=== PATIENT | female | born 1955 | race Caucasian/White ===

== ENCOUNTER 2020-05-07 09:52 | Emergency (ER) | payer SELFPAY ==
--- NOTE | 2020-05-07 09:55 | W.ED.GENADLT ---
HPI - General Adult General: Chief complaint: General Medical Stated complaint: lost meds Time Seen by Provider: 05/07/20 09:54 History of Present Illness: HPI narrative: 64-year-old female visiting of this area she evidently lost all of her medications while in route she is from [place]. Her biggest problems are COPD and hypertensive medications. her breathing is been adequate as long as she stays indoors and does not exert herself. She denies any other symptoms not been ill recently Associated symptoms: Reports no associated symptoms; Deny chest pain, dyspnea, malaise, nausea, rash or vomiting Review of Systems Const: Denies: fever(s), chills, body aches, change in appetite, fatigue or malaise ENMT: Denies: throat pain, ear or mastoid pain, nasal discharge or nasal congestion Card: Denies: chest pain, edema, dyspnea on exertion or orthopnea Resp: Denies: dyspnea, productive cough or non-productive cough GI: Denies: abdominal pain, nausea, vomiting, hematemesis, coffee ground emesis, diarrhea, constipation, bloating, hematochezia or melena : Denies: flank pain, difficulty voiding, dysuria, urinary frequency or urinary urgency Skin/Breast: Denies: rash or pruritus PFSH ED PFSH: Social History (Updated 05/07/20 @ 10:03 by Beatrice Hernandez RN) Smoking and tobacco status: former smoker Physical Exam Const: COMMON NORMALS: no acute distress GENERAL APPEARANCE: cooperative and comfortable ORIENTATION/CONSCIOUSNESS: Yes awake, Yes oriented to person, Yes oriented to place and Yes oriented to time HENMT: COMMON NORMALS: normocephalic, atraumatic, hearing grossly normal bilaterally, external ears normal, EAC's normal, TM's normal bilaterally, Normal nasal mucous membranes and turbinates present, moist oral mucous membranes and oropharynx normal HEAD & SCALP: normocephalic and atraumatic NOSE: Normal nasal mucous membranes and turbinates present EXTERNAL EAR: Yes external ears normal EXTERNAL AUDITORY CANAL: EAC's normal TYMPANIC MEMBRANE: TM's normal bilaterally Eye: COMMON NORMALS: Equal, round and reactive pupils present, EOMs intact bilaterally, conjunctivae normal and no scleral icterus CONJUNCTIVA: Yes conjunctivae normal PUPIL: Yes Equal, round and reactive pupils present Neck/C-Spine: COMMON NORMALS: full ROM, no lymphadenopathy, supple and no JVD Lymph: LYMPHATIC: no lymphadenopathy noted and no lymphedema noted Resp: COMMON NORMALS: normal respiratory effort, No retractions, No use of accessory muscles and clear to auscultation bilaterally AUSCULTATION: clear to auscultation bilaterally Cardio: COMMON NORMALS: no JVD, regular rate, regular rhythm and No murmurs present (Cardio) RATE: regular rate RHYTHM: regular rhythm GI: COMMON NORMALS: Soft to palpation and No hepatosplenomegaly present AUSCULTATION: Yes normoactive bowel sounds PALPATION: Yes Soft to palpation, No Tenderness to palpation present (GI), No Guarding due to palpation present (GI) and Yes No hepatosplenomegaly present Extremity: COMMON NORMALS: normal to inspection, capillary refill normal, no clubbing, cyanosis or edema, no calf tenderness and no pedal edema Neuro: SENSORIUM/ORIENTATION: Yes oriented to person, Yes oriented to place and Yes oriented to time Skin: COMMON NORMALS: no rashes or lesions noted GENERAL SKIN EXAM: no rashes or lesions noted Course Vital Signs: Vital signs: Vital Signs Temperature 97.9 F 05/07/20 10:00 Pulse Rate 77 05/07/20 10:51 Respiratory Rate 18 05/07/20 10:51 Blood Pressure 126/88 05/07/20 10:51 Pulse Oximetry 98 05/07/20 10:51 MDM - General Adult MDM Narrative: Medical decision making narrative: Refilled all her medications for 14 days she states that is adequate to get her by until she gets home. Turn to the emergency room if she has any difficulty or problems. Discharge Plan Discharge Patient Disposition: Home, Self-Care Clinical Impression: COPD (chronic obstructive pulmonary disease), Hypertension Condition: Stable Prescriptions: New amlodipine 5 mg tablet 5 mg PO DAILY Qty: 14 RF: 0 ProAir HFA 90 mcg/actuation HFA aerosol inhaler 2 inh INHALATION Q6H PRN (Reason: shortness of breath or wheezing) Qty: 18 RF: 0 esomeprazole magnesium 20 mg capsule,delayed release(DR/EC) 20 mg PO DAILY Qty: 28 RF: 0 Allergy Relief (fluticasone) 50 mcg/actuation spray,suspension 1 spray INTRANASAL BID Qty: 16 RF: 0 ipratropium-albuterol 0.5 mg-3 mg(2.5 mg base)/3 mL solution for nebulization 3 ml INHALATION Q6H PRN (Reason: shortness of breath or wheezing) Qty: 90 RF: 0 lisinopril 20 mg tablet 20 mg PO DAILY Qty: 14 RF: 0 Spiriva with HandiHaler 18 mcg capsule, w/inhalation device 1 cap INHALATION DAILY Qty: 14 RF: 0 trazodone 50 mg tablet 50 mg PO .qhs Qty: 14 RF: 0 Seroquel 300 mg tablet 300 mg PO DAILY Qty: 14 RF: 0 No Action ipratropium-albuterol 0.5 mg-3 mg(2.5 mg base)/3 mL Solution For Nebulization 3 ml INHALATION QID PRN (Reason: Shortness Of Breath) RF: 0 quetiapine 300 mg tablet 300 mg PO BEDTIME RF: 0 trazodone 50 mg tablet 50 mg PO BEDTIME PRN (Reason: Sleep) RF: 0 lisinopril 20 mg tablet 20 mg PO DAILY RF: 0 amlodipine 5 mg tablet 5 mg PO DAILY RF: 0 ProAir HFA 90 mcg/actuation HFA aerosol inhaler 1 puff INHALATION Q6H PRN (Reason: Shortness Of Breath) RF: 0 fluticasone propionate 50 mcg/actuation spray,suspension 1 spray INTRANASAL DAILY RF: 0 esomeprazole magnesium 20 mg capsule,delayed release(DR/EC) 20 mg PO BID RF: 0 Spiriva with HandiHaler 18 mcg capsule, w/inhalation device 18 mcg INHALATION DAILY RF: 0 Discharge Orders: Discharge Order (Routine); Ordered 05/07/20 Ordered By: Faraz Calvin Activity Restrictions/Additional Instructions: Your medications were refilled for 2 weeks to allow you to return to your primary care doctor. Discharge Date/Time: 05/07/20 10:52 Coding Level of Care Code ED [employer] for Oleksandr Vera
[2020-05-07 09:56] VITALS: BMI 26.5
[2020-05-07 10:00] VITALS: BP 150/89; PULSE 84; RESP 18; TEMP 36.6; O2SAT 95
[2020-05-07 10:51] VITALS: BP 126/88; PULSE 77; RESP 18; O2SAT 98
== END 2020-05-07 10:52 | disposition home or self-care (01) ==
PROVIDERS: Emergency Provider Family Medicine
DX: J44.9 Chronic obstructive pulmonary disease, unspecified (principal); I10 Essential (primary) hypertension; Z87.891 Personal history of nicotine dependence
CPT/HCPCS: 12345; 99282

== ENCOUNTER 2020-09-04 08:47 | Inpatient (IN) | payer SELFPAY ==
[2020-09-04] VITALS (8 sets, daily range): BP systolic 97–125; BP diastolic 62–72; PULSE 72–90; RESP 16–19; TEMP 36.6–37.3; O2SAT 93–97; BMI 26.5
--- NOTE | 2020-09-04 08:52 | ECG_ITS ---
[facility] Test Date: 2020-09-04 Pat Name: Che Pruitt Department: Room: Gender: Female Cashier Supervisor: : 1955 Requested By: Joni Dunbar Order Number: [id number] Sylvia MD: ALCON LEVINE Measurements Intervals [place] Rate: 93 P: 78 MT: 180 QRS: 28 QRSD: 92 T: 70 QT: 368 QTc: 458 Interpretive Statements SINUS RHYTHM WITH OCCASIONAL VENTRICULAR PREMATURE COMPLEXES No previous ECG available for comparison Electronically Signed On 09-04-2020 19:35:36 PERSONAL FITNESS MANAGER by ALCON LEVINE [email or web address]
--- NOTE | 2020-09-04 08:52 | XRR_ITS ---
PROCEDURE INFORMATION: Exam: XR Chest, 1 View Exam date and time: 09/04/2020 8:53 AM Age: 65 years old Clinical indication: Other: Weak TECHNIQUE: Imaging protocol: XR of the chest Views: 1 view. COMPARISON: No relevant prior studies available. FINDINGS: Lungs: Unremarkable. No consolidation. Pleural space: Unremarkable. No pleural effusion. No pneumothorax. Heart/Mediastinum: Unremarkable. No cardiomegaly. Bones/joints: Chronic right 7th rib fracture deformity. Chronic fracture deformity of left 4th through 7th ribs. Thoracic curvature left concavity. XR/XR chest 1V portable [id number] IMPRESSION: No acute cardiopulmonary process.
[2020-09-04 09:21] LABS: Basophils # 0.1 10^3/uL (0.0-0.1); Basophils % 0.6 %; Eosinophils % 0.3 %; Hematocrit 38.4 % (37.0-47.0); Hemoglobin 13.1 g/dL (11.5-15.3); Lymphocytes # 0.8 10^3/uL (0.8-4.8); Lymphocytes % 8.8 %; Mean Corpuscular HGB Conc 34.1 g/dL (30.0-36.0); Mean Corpuscular Hemoglobin 29.1 pg (28.0-34.0); Mean Corpuscular Volume 85.3 fL (81-99); Mean Platelet Volume 9.7 fL (7.4-10.4); Monocytes % 10.4 %; Neutrophils # 7.59 10^3/uL (1.8-7.7); Neutrophils % 79.5 %; Nucleated Red Blood Cells % 0 %; Platelet Count 332 10^3/cmm (130-400); White Blood Count 9.6 10^3/uL (4.0-10.0)
--- NOTE | 2020-09-04 09:29 | ED_ITS ---
Documented by User: CINDY Tate 09/04/20 15:51 HPI - Nausea/Vomiting/Diarrhea General: Chief complaint: Nausea/Vomiting/Diarrhea Stated complaint: weak/throwing up/muscle aches Time Seen by Provider: 09/04/20 08:51 History of Present Illness: HPI Narrative: Patient is a 65-year-old female comes to the ED with diarrhea, nausea and vomiting. Patient says symptoms started about 6 days ago. She also says she has some mild intermittent abdominal pain over the past 6 days but says she has no abdominal pain or nausea currently. She has had fevers over the past couple days and says she has had couple episodes of emesis over the past week as well.. Endorses a lot of diarrhea that she describes as black and tarry. She says whenever she eats or drinks anything it goes right through her and she is diarrhea. She is also comp laining of feeling weak and having body aches. Patient did say she lives in an RV and she has chickens that live inside the RV with her. She states possibility of cross-contamination with food she eats ham the chickens in her RV. Associated nausea: Yes Associated abdominal pain: No Associated symtoms: Reports fatigue and nausea; Denies change in vision, chest pain, dysuria, headache(s) or palpitations Review of Systems Const: Reports: fever(s), body aches and fatigue; Denies: chills Eyes: Denies: change in vision or eye discomfort ENMT: Denies: throat pain, odynophagia, nasal discharge or nasal congestion Card: Denies: chest pain, palpitations, edema, swelling of feet/ankles, dyspnea on exertion or orthopnea Resp: Denies: dyspnea, productive cough or non-productive cough GI: Reports: abdominal pain, nausea, vomiting, diarrhea, change in stool meenu cter (She describes stool as black and tarry.) and melena; Denies: constipation or hematochezia : Denies: flank pain, dysuria or hematuria Musc: Denies: neck pain, back pain or extremity swelling Skin/Breast: Denies: rash or new lesions Neuro: Denies: headache(s), numbness in extremities or weakness in extremities [facility] ED PFSH: Medical History (Updated 09/07/20 @ 00:00 by ) Anxiety Bipolar disorder COPD (chronic obstructive pulmonary disease) -no acute exacerbation -not oxygen dependent at baseline Hypertension -VSS; continue to monitor vital signs -can resume oral antihypertensives Surgical History History of hysterectomy History of tympanoplasty Family History Other CAD (coronary artery disease) Hypertension Psychiatric illness Stroke Social History Smoking and tobacco status: former smoker Alcohol intake: never Substance/Drug Use: never Lives independently: Yes Household members: spouse Housing: Manufactured/Mobile home Current gender identity: Female Physical Exam Const: COMMON NORMALS: no acute distress, patient oriented x3 and alert GENERAL APPEARANCE: cooperative and comfortable HENMT: COMMON NORMALS: normocephalic HEAD & SCALP: normocephalic MOUTH: moist mucous membranes abnormal (moderate dehydration) THROAT: posterior oropharynx normal and uvula midline Eye: COMMON NORMALS: Equal, round and reactive pupils present PUPIL: Yes Equal, round and reactive pupils present Neck/C-Spine: COMMON NORMALS: supple GENERAL: Yes normal visual inspection Resp: COMMON NORMALS: normal respiratory effort, No retractions, No use of accessory muscles and clear to auscultation bilaterally AUSCULTATION: clear to auscultation bilaterally Cardio: COMMON NORMALS: regular rate, regular rhythm, S1 normal heart sound present, S2 normal heart sound present, No gallops present (Cardio), No clicks present (Cardio), No murmurs present (Cardio) and Peripheral pulses 2+ throughout RATE: regular rate RHYTHM: regular rhythm HEART SOUNDS: S1 normal heart sound present and S2 normal heart sound present PERIPHERAL PULSES: Peripheral pulses 2+ throughout GI: COMMON NORMALS: Normal to inspection, nondistended, normoactive bowel sounds present, Soft to palpation, non-tender and no masses PALPATION: Yes Soft to palpation : COMMON NORMALS: Yes no CVA tenderness BLADDER/KIDNEY EXAM: Yes no CVA tenderness Back/Pelvis: COMMON NORMALS: no CVA tenderness Extremity: COMMON NORMALS: normal to inspection and no pedal edema Neuro: COMMON NORMALS: patient oriented x3 and moves all extremities SENSORIUM/ORIENTATION: Yes alert Skin: GENERAL SKIN EXAM: dry skin Procedures Stool Hemoccult Procedural Steps Taken: stool placed in appropriate test area, developer placed on stool and control areas and controls appropriately positive and negative Hemoccult result: negative Additional Comments: Nurse took sample from stool and performed test. She showed me test card it was negative. Course Vital Signs: Vital signs: Vital Signs Temperature 98.3 F 09/06/20 11:29 Pulse Rate 85 09/06/20 11:29 Respiratory Rate 16 09/06/20 11:29 Blood Pressure 114/69 09/06/20 11:29 Pulse Oximetry 92 09/06/20 11:29 MDM - Nausea/Vomiting/Diarrhea MDM Narrative: Medical decision making narrative: Patient is a 65-year-old female comes to the ED with diarrhea and weakness. She has been having symptoms for the past 6 days. Stool Hemoccult negative. Potassium 3.0 and her creatinine was 2.1. CBC is unremarkable. EKG showed normal sinus rhythm with no ST segment elevation or depression seen. Troponins are negative. CT of abdomen showed multiple mesenteric lymph nodes. I talked with Dr. Nguyen about patient case and she will be taking over patient care and getting patient admitt ed to hospital. Lab Data: Attestation: I reviewed the patient's lab results. Labs: Lab Results 09/04/20 09/04/20 09/04/20 Range/Units 09:01 09:01 09:12 WBC 9.6 (4.0-10.0) 10^3/ uL RBC 4.50 (4.1-5.3) 10^6/u L Hgb 13.1 (11.5-15.3) g/dL Hct 38.4 (37.0-47.0) % MCV 85.3 (81-99) fL MCH 29.1 (28.0-34.0) pg MCHC 34.1 (30.0-36.0) g/dL RDW 12.0 L (12.1-15.1) % Plt Count 332 (130-400) 10^3/c mm MPV 9.7 (7.4-10.4) fL Neut % (Auto) 79.5 % Lymph % (Auto) 8.8 % Putnam % (Auto) 10.4 % Eos % (Auto) 0.3 % Baso % (Auto) 0.6 % Neut # (Auto) 7.59 (1.8-7.7) 10^3/u L Lymph # (Auto) 0.8 (0.8-4.8) 10^3/u L Putnam # (Auto) 1.0 H (0.2-0.9) 10^3/u L Eos # (Auto) 0.0 (0.0-0.8) 10^3/u L Baso # (Auto) 0.1 (0.0-0.1) 10^3/u L Nucleated RBC % (a uto) 0 % Nucleated RBCs # 0.0 /100WBC Sodium (136-145) mmol/L Potassium (3.5-5.1) mmol/L Chloride (98-107) mmol/L Carbon Dioxide (22-29) mmol/L Anion Gap (5-19) BUN (8-23) mg/dL Creatinine (0.5-0.9) mg/dL GFR Calculation (90-130) mL/min Glucose (65-115) mg/dL Calculated Osmolal ity (285-295) mOsm/k g Calcium (8.5-10.5) mg/dL Phosphorus (2.5-4.5) mg/dL Magnesium (1.7-2.3) mg/dL Iron (37-145) ug/dL TIBC mcg/dl % Saturation (20-50) % Unsat Iron Binding (112-347) ug/dL Total Bilirubin (0.15-1.2) mg/dL AST (0-32) U/L ALT (0-33) U/L Alkaline Phosphata se (35-105) IU/L Troponin T Baselin e (0-10) ng/L Troponin T 120 Min north fork (0-10) ng/L Delta Troponin T (0-10) ABS# Total Protein (6.6-8.7) g/dL Albumin (3.5-5.2) g/dL Globulin (1.3-4.6) g/dL Lipase (13-60) U/L Procalcitonin (0-0.5) ng/mL TSH (0.27-4.20) uIU/ mL Urine Color Yellow (Yellow) Urine Appearance Sl hazy (CLEAR) Urine pH 5 (5-7) Ur Specific Gravit y 1.010 (1.005-1.030) Urine Protein Neg (Negative) Urine Glucose (UA) Norm (Normal) Urine Ketones Negative (Negative) Urine Blood 2+ H (Negative) Urine Nitrate Negative (Negative) Urine Bilirubin Neg (Negative) Urine Urobilinogen Norm (Negative) mg/dL Ur Leukocyte Aleisha ase 2+ H (Negative) Urine RBC 10-15 H (0-2) /hpf Urine WBC 55-80 H (0-5) /hpf Ur Squamous Epith Cells 0-4 H (0-5) /hpf Ur Transition Epit h Cell 0-4 /hpf Amorphous Sediment Not Reportable Urine Bacteria 1+ H (NONE) /hpf Coarse Granular Ca sts 0-4 H /lpf Other Casts Epithelial /lpf Urine Mucus Trace /hpf Ur Random Sodium 18 mmol/L Ur Random Potassiu m 42 mmol/L Ur Random Chloride < 10 mmol/L Urine Creatinine 141 (28-217) mg/dL Urine Opiates Scre en Negative (Negative) ng/mL Ur Barbiturates Sc reen Negative (Negative) ng/mL Ur Phencyclidine S crn Negative (Negative) ng/mL Ur Amphetamines Sc reen Negative (Negative) ng/mL U Benzodiazepines Scrn Negative (Negative) ng/mL Urine Cocaine Scre en Negative (Negative) ng/mL U Marijuana (THC) Screen Negative (Negative) ng/mL SARS-CoV-2 Ag (Rap id) (Negative) 09/04/20 09/04/20 09/04/20 Range/Units 09:12 09:12 09:12 WBC (4.0-10.0) 10^3/ uL RBC (4.1-5.3) 10^6/u L Hgb (11.5-15.3) g/dL Hct (37.0-47.0) % MCV (81-99) fL MCH (28.0-34.0) pg MCHC (30.0-36.0) g/dL RDW (12.1-15.1) % Plt Count (130-400) 10^3/c mm MPV (7.4-10.4) fL Neut % (Auto) % Lymph % (Auto) % Putnam % (Auto) % Eos % (Auto) % Baso % (Auto) % Neut # (Auto) (1.8-7.7) 10^3/u L Lymph # (Auto) (0.8-4.8) 10^3/u L Putnam # (Auto) (0.2-0.9) 10^3/u L Eos # (Auto) (0.0-0.8) 10^3/u L Baso # (Auto) (0.0-0.1) 10^3/u L Nucleated RBC % (a uto) % Nucleated RBCs # /100WBC Sodium 132 L (136-145) mmol/L Potassium 3.0 L (3.5-5.1) mmol/L Chloride 95 L (98-107) mmol/L Carbon Dioxide 20 L (22-29) mmol/L Anion Gap 20.0 H (5-19) BUN 51 H (8-23) mg/dL Creatinine 2.1 H (0.5-0.9) mg/dL GFR Calculation 23.8 L (90-130) mL/min Glucose 126 H (65-115) mg/dL Calculated Osmolal ity 289 (285-295) mOsm/k g Calcium 8.5 (8.5-10.5) mg/dL Phosphorus (2.5-4.5) mg/dL Magnesium 2.9 H (1.7-2.3) mg/dL Iron (37-145) ug/dL TIBC mcg/dl % Saturation (20-50) % Unsat Iron Binding (112-347) ug/dL Total Bilirubin 0.2 (0.15-1.2) mg/dL AST 40 H (0-32) U/L ALT 48 H (0-33) U/L Alkaline Phosphata se 99 (35-105) IU/L Troponin T Baselin e 8 (0-10) ng/L Troponin T 120 Min north fork (0-10) ng/L Delta Troponin T (0-10) ABS# Total Protein 6.3 L (6.6-8.7) g/dL Albumin 3.9 (3.5-5.2) g/dL Globulin 2.4 (1.3-4.6) g/dL Lipase 37 (13-60) U/L Procalcitonin (0-0.5) ng/mL TSH (0.27-4.20) uIU/ mL Urine Color (Yellow) Urine Appearance (CLEAR) Urine pH (5-7) Ur Specific Gravit y (1.005-1.030) Urine Protein (Negative) Urine Glucose (UA) (Normal) Urine Ketones (Negative) Urine Blood (Negative) Urine Nitrate (Negative) Urine Bilirubin (Negative) Urine Urobilinogen (Negative) mg/dL Ur Leukocyte Aleisha ase (Negative) Urine RBC (0-2) /hpf Urine WBC (0-5) /hpf Ur Squamous Epith Cells (0-5) /hpf Ur Transition Epit h Cell /hpf Amorphous Sediment Urine Bacteria (NONE) /hpf Coarse Granular Ca sts /lpf Other Casts /lpf Urine Mucus /hpf Ur Random Sodium mmol/L Ur Random Potassiu m mmol/L Ur Random Chloride mmol/L Urine Creatinine (28-217) mg/dL Urine Opiates Scre en (Negative) ng/mL Ur Barbiturates Sc reen (Negative) ng/mL Ur Phencyclidine S crn (Negative) ng/mL Ur Amphetamines Sc reen (Negative) ng/mL U Benzodiazepines Scrn (Negative) ng/mL Urine Cocaine Scre en (Negative) ng/mL U Marijuana (THC) Screen (Negative) ng/mL SARS-CoV-2 Ag (Rap id) (Negative) 09/04/20 09/04/20 09/04/20 Range/Units 09:12 09:12 12:00 WBC (4.0-10.0) 10^3/ uL RBC (4.1-5.3) 10^6/u L Hgb (11.5-15.3) g/dL Hct (37.0-47.0) % MCV (81-99) fL MCH (28.0-34.0) pg MCHC (30.0-36.0) g/dL RDW (12.1-15.1) % Plt Count (130-400) 10^3/c mm MPV (7.4-10.4) fL Neut % (Auto) % Lymph % (Auto) % Putnam % (Auto) % Eos % (Auto) % Baso % (Auto) % Neut # (Auto) (1.8-7.7) 10^3/u L Lymph # (Auto) (0.8-4.8) 10^3/u L Putnam # (Auto) (0.2-0.9) 10^3/u L Eos # (Auto) (0.0-0.8) 10^3/u L Baso # (Auto) (0.0-0.1) 10^3/u L Nucleated RBC % (a uto) % Nucleated RBCs # /100WBC Sodium (136-145) mmol/L Potassium (3.5-5.1) mmol/L Chloride (98-107) mmol/L Carbon Dioxide (22-29) mmol/L Anion Gap (5-19) BUN (8-23) mg/dL Creatinine (0.5-0.9) mg/dL GFR Calculation (90-130) mL/min Glucose (65-115) mg/dL Calculated Osmolal ity (285-295) mOsm/k g Calcium (8.5-10.5) mg/dL Phosphorus 4.6 H (2.5-4.5) mg/dL Magnesium (1.7-2.3) mg/dL Iron 38 (37-145) ug/dL TIBC 192 mcg/dl % Saturation 19.7 L (20-50) % Unsat Iron Binding 154 (112-347) ug/dL Total Bilirubin (0.15-1.2) mg/dL AST (0-32) U/L ALT (0-33) U/L Alkaline Phosphata se (35-105) IU/L Troponin T Baselin e (0-10) ng/L Troponin T 120 Min north fork 7.19 (0-10) ng/L Delta Troponin T -0.81 L (0-10) ABS# Total Protein (6.6-8.7) g/dL Albumin (3.5-5.2) g/dL Globulin (1.3-4.6) g/dL Lipase (13-60) U/L Procalcitonin 0.31 (0-0.5) ng/mL TSH 0.75 (0.27-4.20) uIU/ mL Urine Color (Yellow) Urine Appearance (CLEAR) Urine pH (5-7) Ur Specific Gravit y (1.005-1.030) Urine Protein (Negative) Urine Glucose (UA) (Normal) Urine Ketones (Negative) Urine Blood (Negative) Urine Nitrate (Negative) Urine Bilirubin (Negative) Urine Urobilinogen (Negative) mg/dL Ur Leukocyte Aleisha ase (Negative) Urine RBC (0-2) /hpf Urine WBC (0-5) /hpf Ur Squamous Epith Cells (0-5) /hpf Ur Transition Epit h Cell /hpf Amorphous Sediment Urine Bacteria (NONE) /hpf Coarse Granular Ca sts /lpf Other Casts /lpf Urine Mucus /hpf Ur Random Sodium mmol/L Ur Random Potassiu m mmol/L Ur Random Chloride mmol/L Urine Creatinine (28-217) mg/dL Urine Opiates Scre en (Negative) ng/mL Ur Barbiturates Sc reen (Negative) ng/mL Ur Phencyclidine S crn (Negative) ng/mL Ur Amphetamines Sc reen (Negative) ng/mL U Benzodiazepines Scrn (Negative) ng/mL Urine Cocaine Scre en (Negative) ng/mL U Marijuana (THC) Screen (Negative) ng/mL SARS-CoV-2 Ag (Rap id) (Negative) 09/04/20 Range/Units 12:53 WBC (4.0-10.0) 10^3/ uL RBC (4.1-5.3) 10^6/u L Hgb (11.5-15.3) g/dL Hct (37.0-47.0) % MCV (81-99) fL MCH (28.0-34.0) pg MCHC (30.0-36.0) g/dL RDW (12.1-15.1) % Plt Count (130-400) 10^3/c mm MPV (7.4-10.4) fL Neut % (Auto) % Lymph % (Auto) % Putnam % (Auto) % Eos % (Auto) % Baso % (Auto) % Neut # (Auto) (1.8-7.7) 10^3/u L Lymph # (Auto) (0.8-4.8) 10^3/u L Putnam # (Auto) (0.2-0.9) 10^3/u L Eos # (Auto) (0.0-0.8) 10^3/u L Baso # (Auto) (0.0-0.1) 10^3/u L Nucleated RBC % (a uto) % Nucleated RBCs # /100WBC Sodium (136-145) mmol/L Potassium (3.5-5.1) mmol/L Chloride (98-107) mmol/L Carbon Dioxide (22-29) mmol/L Anion Gap (5-19) BUN (8-23) mg/dL Creatinine (0.5-0.9) mg/dL GFR Calculation (90-130) mL/min Glucose (65-115) mg/dL Calculated Osmolal ity (285-295) mOsm/k g Calcium (8.5-10.5) mg/dL Phosphorus (2.5-4.5) mg/dL Magnesium (1.7-2.3) mg/dL Iron (37-145) ug/dL TIBC mcg/dl % Saturation (20-50) % Unsat Iron Binding (112-347) ug/dL Total Bilirubin (0.15-1.2) mg/dL AST (0-32) U/L ALT (0-33) U/L Alkaline Phosphata se (35-105) IU/L Troponin T Baselin e (0-10) ng/L Troponin T 120 Min north fork (0-10) ng/L Delta Troponin T (0-10) ABS# Total Protein (6.6-8.7) g/dL Albumin (3.5-5.2) g/dL Globulin (1.3-4.6) g/dL Lipase (13-60) U/L Procalcitonin (0-0.5) ng/mL TSH (0.27-4.20) uIU/ mL Urine Color (Yellow) Urine Appearance (CLEAR) Urine pH (5-7) Ur Specific Gravit y (1.005-1.030) Urine Protein (Negative) Urine Glucose (UA) (Normal) Urine Ketones (Negative) Urine Blood (Negative) Urine Nitrate (Negative) Urine Bilirubin (Negative) Urine Urobilinogen (Negative) mg/dL Ur Leukocyte Aleisha ase (Negative) Urine RBC (0-2) /hpf Urine WBC (0-5) /hpf Ur Squamous Epith Cells (0-5) /hpf Ur Transition Epit h Cell /hpf Amorphous Sediment Urine Bacteria (NONE) /hpf Coarse Granular Ca sts /lpf Other Casts /lpf Urine Mucus /hpf Ur Random Sodium mmol/L Ur Random Potassiu m mmol/L Ur Random Chloride mmol/L Urine Creatinine (28-217) mg/dL Urine Opiates Scre en (Negative) ng/mL Ur Barbiturates Sc reen (Negative) ng/mL Ur Phencyclidine S crn (Negative) ng/mL Ur Amphetamines Sc reen (Negative) ng/mL U Benzodiazepines Scrn (Negative) ng/mL Urine Cocaine Scre en (Negative) ng/mL U Marijuana (THC) Screen (Negative) ng/mL SARS-CoV-2 Ag (Rap id) Negative (Negative) Imaging Data^: CT Abd/Pel: Attestation: I personally reviewed and interpreted this imaging study as follows: Radiologist's impression: [address] [address] [address] Scan Report Signed Patient: Che Pruitt Unit #: [id number] : 1955 Age/Sex: 65 / F ADM Date: 09/04/20 Loc: ER Room/Bed: Attending Dr: Ordering Provider/Ordering MD: Joni Dunbar Date of Service: 09/04/20 Procedure(s): CT abdomen pelvis con [id number] Accession Number(s): [id number] Report Number: [id number] PROCEDURE INFORMATION: Exam: CT Abdomen And Pelvis Without Contrast Exam date and time: 09/04/2020 9:32 AM Age: 65 years old Clinical indication: Nausea and vomiting and other: Diarrhea; Prior surgery; Surgery type: Hysto; Additional info: Diarrhea, black tarry stool, n/v TECHNIQUE: Imaging protocol: Computed tomography of the abdomen and pelvis without contrast. Radiation optimization: All CT scans at this facility use at least one of these dose optimization techniques: automated exposure control; mA and/or kV adjustment per patient size (includes targeted exams where dose is matched to clinical indication); or iterative reconstruction. COMPARISON: No relevant prior studies available. RADIATION DOSE METRICS: Total DLP (mGy-cm): 912.23 FINDINGS: Detailed evaluation of the abdominal and pelvic viscera is somewhat limited in the absence of intravenous contrast. Pleural space: No acute airspace or pleural disease. Liver: Poorly characterized 5 mm nodular hypodensity in the left hepatic lobe. Gallbladder and bile ducts: Status post cholecystectomy. Pancreas: No pancreatic mass or ductal dilatation. Spleen: No splenomegaly. Adrenal glands: Unremarkable adrenals. Kidneys and ureters: Normal renal morphology. No hydronephrosis. Stomach and bowel: Colonic dilatation. 3 cm duodenal diverticulum. Appendix: Appendix not visualized. Intraperitoneal space: No significant free fluid. Vasculature: Vascular calcification. No abdominal aortic aneurysm. Lymph nodes: Multiple mesenteric lymph nodes, including a 12 x 11 by 14 mm mesenteric lymph node in the right lower quadrant. Clinical correlation is recommended to exclude mesenteric adenitis. Urinary bladder: Bladder dilatation. Reproductive: status post hysterectomy. Bones/joints: Severe levoscoliosis. Osteopenia and degenerative change. CT/CT abdomen pelvis wo con [id number] IMPRESSION: 1. Multiple mesenteric lymph nodes. Clinical correlation is recommended to exclude mesenteric adenitis. 2. Additional findings as described above. Radiation Dose CTDIVOL = (mGy): DLP = 912.23 (mGy-cm) Dictated By: Joe Cruz MD Signed By: Joe Cruz MD Signed Date/Time: 09/04/20 112 DD/ 112 EKG Data^: EKG 1: Attestation: I personally reviewed and interpreted this EKG as follows: EKG interpretation date: 09/04/20 Interpretation: Normal sinus rhythm, 93 bpm, no ST segment elevation or depression seen. Discharge Plan Discharge Patient Disposition: Admitted As Inpatient Admit Provider: Julian Braden Condition: Stable Referrals: LENA AHUJA FNP [Referring] - 09/15/20 10:00 am Discharge Diet: Advance as tolerated and Regular Discharge Activity: Increase activity as tolerated Patient Instructions: Ciprofloxacin (By mouth), Mupirocin (On the skin), Acute Kidney Injury (DC), Urinary Tract Infection in Women (GEN) Discharge Date/Time: 09/04/20 14:58 Coding Level of Care Code ED Meter Attendant for Chg Fwd Exam Comprehensive Documented by User: Sandra Nguyen MD 09/08/20 07:22 HPI - Nausea/Vomiting/Diarrhea General: Chief complaint: Nausea/Vomiting/Diarrhea Stated complaint: weak/throwing up/muscle aches Time Seen by Provider: 09/04/20 08:51 PFSH ED PFSH: Medical History (Updated 09/07/20 @ 00:00 by ) Anxiety Bipolar disorder COPD (chronic obstructive pulmonary disease) -no acute exacerbation -not oxygen dependent at baseline Hypertension -VSS; continue to monitor vital signs -can resume oral antihypertensives Surgical History History of hysterectomy History of tympanoplasty Family History Other CAD (coronary artery disease) Hypertension Psychiatric illness Stroke Social History Smoking and tobacco status: former smoker Alcohol intake: never Substance/Drug Use: never Lives independently: Yes Household members: spouse Housing: Manufactured/Mobile home Current gender identity: Female Course ED course: I saw this patient with CINDY Tate. She presents with vomiting, diarrhea. She is weak and dehydrated appearing. Her work-up included some mesenteric adenitis on her CT. Given the history that she recently got chickens and lives with them in a small RV it is entirely reasonable to think this could be Salmonella. Either way she is still not tolerating fluids and will need to come in the hospital for treatment. Her abdomen is diffusely tender but not surgical. She is awake and alert and quite pleasant. Vital Signs: Vital signs: Vital Signs Temperature 98.3 F 09/06/20 11:29 Pulse Rate 85 09/06/20 11:29 Respiratory Rate 16 09/06/20 11:29 Blood Pressure 114/69 09/06/20 11:29 Pulse Oximetry 92 09/06/20 11:29 MDM - Nausea/Vomiting/Diarrhea Lab Data: Labs: Lab Results 09/04/20 09/04/20 09/04/20 Range/Units 09:01 09:01 09:12 WBC 9.6 (4.0-10.0) 10^3/ uL RBC 4.50 (4.1-5.3) 10^6/u L Hgb 13.1 (11.5-15.3) g/dL Hct 38.4 (37.0-47.0) % MCV 85.3 (81-99) fL MCH 29.1 (28.0-34.0) pg MCHC 34.1 (30.0-36.0) g/dL RDW 12.0 L (12.1-15.1) % Plt Count 332 (130-400) 10^3/c mm MPV 9.7 (7.4-10.4) fL Neut % (Auto) 79.5 % Lymph % (Auto) 8.8 % Putnam % (Auto) 10.4 % Eos % (Auto) 0.3 % Baso % (Auto) 0.6 % Neut # (Auto) 7.59 (1.8-7.7) 10^3/u L Lymph # (Auto) 0.8 (0.8-4.8) 10^3/u L Putnam # (Auto) 1.0 H (0.2-0.9) 10^3/u L Eos # (Auto) 0.0 (0.0-0.8) 10^3/u L Baso # (Auto) 0.1 (0.0-0.1) 10^3/u L Nucleated RBC % (a uto) 0 % Nucleated RBCs # 0.0 /100WBC Sodium (136-145) mmol/L Potassium (3.5-5.1) mmol/L Chloride (98-107) mmol/L Carbon Dioxide (22-29) mmol/L Anion Gap (5-19) BUN (8-23) mg/dL Creatinine (0.5-0.9) mg/dL GFR Calculation (90-130) mL/min Glucose (65-115) mg/dL Calculated Osmolal ity (285-295) mOsm/k g Calcium (8.5-10.5) mg/dL Phosphorus (2.5-4.5) mg/dL Magnesium (1.7-2.3) mg/dL Iron (37-145) ug/dL TIBC mcg/dl % Saturation (20-50) % Unsat Iron Binding (112-347) ug/dL Total Bilirubin (0.15-1.2) mg/dL AST (0-32) U/L ALT (0-33) U/L Alkaline Phosphata se (35-105) IU/L Troponin T Baselin e (0-10) ng/L Troponin T 120 Min north fork (0-10) ng/L Delta Troponin T (0-10) ABS# Total Protein (6.6-8.7) g/dL Albumin (3.5-5.2) g/dL Globulin (1.3-4.6) g/dL Lipase (13-60) U/L Procalcitonin (0-0.5) ng/mL TSH (0.27-4.20) uIU/ mL Urine Color Yellow (Yellow) Urine Appearance Sl hazy (CLEAR) Urine pH 5 (5-7) Ur Specific Gravit y 1.010 (1.005-1.030) Urine Protein Neg (Negative) Urine Glucose (UA) Norm (Normal) Urine Ketones Negative (Negative) Urine Blood 2+ H (Negative) Urine Nitrate Negative (Negative) Urine Bilirubin Neg (Negative) Urine Urobilinogen Norm (Negative) mg/dL Ur Leukocyte Aleisha ase 2+ H (Negative) Urine RBC 10-15 H (0-2) /hpf Urine WBC 55-80 H (0-5) /hpf Ur Squamous Epith Cells 0-4 H (0-5) /hpf Ur Transition Epit h Cell 0-4 /hpf Amorphous Sediment Not Reportable Urine Bacteria 1+ H (NONE) /hpf Coarse Granular Ca sts 0-4 H /lpf Other Casts Epithelial /lpf Urine Mucus Trace /hpf Ur Random Sodium 18 mmol/L Ur Random Potassiu m 42 mmol/L Ur Random Chloride < 10 mmol/L Urine Creatinine 141 (28-217) mg/dL Urine Opiates Scre en Negative (Negative) ng/mL Ur Barbiturates Sc reen Negative (Negative) ng/mL Ur Phencyclidine S crn Negative (Negative) ng/mL Ur Amphetamines Sc reen Negative (Negative) ng/mL U Benzodiazepines Scrn Negative (Negative) ng/mL Urine Cocaine Scre en Negative (Negative) ng/mL U Marijuana (THC) Screen Negative (Negative) ng/mL SARS-CoV-2 Ag (Rap id) (Negative) 09/04/20 09/04/20 09/04/20 Range/Units 09:12 09:12 09:12 WBC (4.0-10.0) 10^3/ uL RBC (4.1-5.3) 10^6/u L Hgb (11.5-15.3) g/dL Hct (37.0-47.0) % MCV (81-99) fL MCH (28.0-34.0) pg MCHC (30.0-36.0) g/dL RDW (12.1-15.1) % Plt Count (130-400) 10^3/c mm MPV (7.4-10.4) fL Neut % (Auto) % Lymph % (Auto) % [place] % (Auto) % Eos % (Auto) % Baso % (Auto) % Neut # (Auto) (1.8-7.7) 10^3/u L Lymph # (Auto) (0.8-4.8) 10^3/u L [place] # (Auto) (0.2-0.9) 10^3/u L Eos # (Auto) (0.0-0.8) 10^3/u L Baso # (Auto) (0.0-0.1) 10^3/u L Nucleated RBC % (a uto) % Nucleated RBCs # /100WBC Sodium 132 L (136-145) mmol/L Potassium 3.0 L (3.5-5.1) mmol/L Chloride 95 L (98-107) mmol/L Carbon Dioxide 20 L (22-29) mmol/L Anion Gap 20.0 H (5-19) BUN 51 H (8-23) mg/dL Creatinine 2.1 H (0.5-0.9) mg/dL GFR Calculation 23.8 L (90-130) mL/min Glucose 126 H (65-115) mg/dL Calculated Osmolal ity 289 (285-295) mOsm/k g Calcium 8.5 (8.5-10.5) mg/dL Phosphorus (2.5-4.5) mg/dL Magnesium 2.9 H (1.7-2.3) mg/dL Iron (37-145) ug/dL TIBC mcg/dl % Saturation (20-50) % Unsat Iron Binding (112-347) ug/dL Total Bilirubin 0.2 (0.15-1.2) mg/dL AST 40 H (0-32) U/L ALT 48 H (0-33) U/L Alkaline Phosphata se 99 (35-105) IU/L Troponin T Baselin e 8 (0-10) ng/L Troponin T 120 Min [place] (0-10) ng/L Delta Troponin T (0-10) ABS# Total Protein 6.3 L (6.6-8.7) g/dL Albumin 3.9 (3.5-5.2) g/dL Globulin 2.4 (1.3-4.6) g/dL Lipase 37 (13-60) U/L Procalcitonin (0-0.5) ng/mL TSH (0.27-4.20) uIU/ mL Urine Color (Yellow) Urine Appearance (CLEAR) Urine pH (5-7) Ur Specific Gravit y (1.005-1.030) Urine Protein (Negative) Urine Glucose (UA) (Normal) Urine Ketones (Negative) Urine Blood (Negative) Urine Nitrate (Negative) Urine Bilirubin (Negative) Urine Urobilinogen (Negative) mg/dL Ur Leukocyte Aleisha ase (Negative) Urine RBC (0-2) /hpf Urine WBC (0-5) /hpf Ur Squamous Epith Cells (0-5) /hpf Ur Transition Epit h Cell /hpf Amorphous Sediment Urine Bacteria (NONE) /hpf Coarse Granular Ca sts /lpf Other Casts /lpf Urine Mucus /hpf Ur Random Sodium mmol/L Ur Random Potassiu m mmol/L Ur Random Chloride mmol/L Urine Creatinine (28-217) mg/dL Urine Opiates Scre en (Negative) ng/mL Ur Barbiturates Sc reen (Negative) ng/mL Ur Phencyclidine S crn (Negative) ng/mL Ur Amphetamines Sc reen (Negative) ng/mL U Benzodiazepines Scrn (Negative) ng/mL Urine Cocaine Scre en (Negative) ng/mL U Marijuana (THC) Screen (Negative) ng/mL SARS-CoV-2 Ag (Rap id) (Negative) 09/04/20 09/04/20 09/04/20 Range/Units 09:12 09:12 12:00 WBC (4.0-10.0) 10^3/ uL RBC (4.1-5.3) 10^6/u L Hgb (11.5-15.3) g/dL Hct (37.0-47.0) % MCV (81-99) fL MCH (28.0-34.0) pg MCHC (30.0-36.0) g/dL RDW (12.1-15.1) % Plt Count (130-400) 10^3/c mm MPV (7.4-10.4) fL Neut % (Auto) % Lymph % (Auto) % Putnam % (Auto) % Eos % (Auto) % Baso % (Auto) % Neut # (Auto) (1.8-7.7) 10^3/u L Lymph # (Auto) (0.8-4.8) 10^3/u L Putnam # (Auto) (0.2-0.9) 10^3/u L Eos # (Auto) (0.0-0.8) 10^3/u L Baso # (Auto) (0.0-0.1) 10^3/u L Nucleated RBC % (a uto) % Nucleated RBCs # /100WBC Sodium (136-145) mmol/L Potassium (3.5-5.1) mmol/L Chloride (98-107) mmol/L Carbon Dioxide (22-29) mmol/L Anion Gap (5-19) BUN (8-23) mg/dL Creatinine (0.5-0.9) mg/dL GFR Calculation (90-130) mL/min Glucose (65-115) mg/dL Calculated Osmolal ity (285-295) mOsm/k g Calcium (8.5-10.5) mg/dL Phosphorus 4.6 H (2.5-4.5) mg/dL Magnesium (1.7-2.3) mg/dL Iron 38 (37-145) ug/dL TIBC 192 mcg/dl % Saturation 19.7 L (20-50) % Unsat Iron Binding 154 (112-347) ug/dL Total Bilirubin (0.15-1.2) mg/dL AST (0-32) U/L ALT (0-33) U/L Alkaline Phosphata se (35-105) IU/L Troponin T Baselin e (0-10) ng/L Troponin T 120 Min [place] 7.19 (0-10) ng/L Delta Troponin T -0.81 L (0-10) ABS# Total Protein (6.6-8.7) g/dL Albumin (3.5-5.2) g/dL Globulin (1.3-4.6) g/dL Lipase (13-60) U/L Procalcitonin 0.31 (0-0.5) ng/mL TSH 0.75 (0.27-4.20) uIU/ mL Urine Color (Yellow) Urine Appearance (CLEAR) Urine pH (5-7) Ur Specific Gravit y (1.005-1.030) Urine Protein (Negative) Urine Glucose (UA) (Normal) Urine Ketones (Negative) Urine Blood (Negative) Urine Nitrate (Negative) Urine Bilirubin (Negative) Urine Urobilinogen (Negative) mg/dL Ur Leukocyte Aleisha ase (Negative) Urine RBC (0-2) /hpf Urine WBC (0-5) /hpf Ur Squamous Epith Cells (0-5) /hpf Ur Transition Epit h Cell /hpf Amorphous Sediment Urine Bacteria (NONE) /hpf Coarse Granular Ca sts /lpf Other Casts /lpf Urine Mucus /hpf Ur Random Sodium mmol/L Ur Random Potassiu m mmol/L Ur Random Chloride mmol/L Urine Creatinine (28-217) mg/dL Urine Opiates Scre en (Negative) ng/mL Ur Barbiturates Sc reen (Negative) ng/mL Ur Phencyclidine S crn (Negative) ng/mL Ur Amphetamines Sc reen (Negative) ng/mL U Benzodiazepines Scrn (Negative) ng/mL Urine Cocaine Scre en (Negative) ng/mL U Marijuana (THC) Screen (Negative) ng/mL SARS-CoV-2 Ag (Rap id) (Negative) 09/04/20 Range/Units 12:53 WBC (4.0-10.0) 10^3/ uL RBC (4.1-5.3) 10^6/u L Hgb (11.5-15.3) g/dL Hct (37.0-47.0) % MCV (81-99) fL MCH (28.0-34.0) pg MCHC (30.0-36.0) g/dL RDW (12.1-15.1) % Plt Count (130-400) 10^3/c mm MPV (7.4-10.4) fL Neut % (Auto) % Lymph % (Auto) % Putnam % (Auto) % Eos % (Auto) % Baso % (Auto) % Neut # (Auto) (1.8-7.7) 10^3/u L Lymph # (Auto) (0.8-4.8) 10^3/u L Putnam # (Auto) (0.2-0.9) 10^3/u L Eos # (Auto) (0.0-0.8) 10^3/u L Baso # (Auto) (0.0-0.1) 10^3/u L Nucleated RBC % (a uto) % Nucleated RBCs # /100WBC Sodium (136-145) mmol/L Potassium (3.5-5.1) mmol/L Chloride (98-107) mmol/L Carbon Dioxide (22-29) mmol/L Anion Gap (5-19) BUN (8-23) mg/dL Creatinine (0.5-0.9) mg/dL GFR Calculation (90-130) mL/min Glucose (65-115) mg/dL Calculated Osmolal ity (285-295) mOsm/k g Calcium (8.5-10.5) mg/dL Phosphorus (2.5-4.5) mg/dL Magnesium (1.7-2.3) mg/dL Iron (37-145) ug/dL TIBC mcg/dl % Saturation (20-50) % Unsat Iron Binding (112-347) ug/dL Total Bilirubin (0.15-1.2) mg/dL AST (0-32) U/L ALT (0-33) U/L Alkaline Phosphata se (35-105) IU/L Troponin T Baselin e (0-10) ng/L Troponin T 120 Min [place] (0-10) ng/L Delta Troponin T (0-10) ABS# Total Protein (6.6-8.7) g/dL Albumin (3.5-5.2) g/dL Globulin (1.3-4.6) g/dL Lipase (13-60) U/L Procalcitonin (0-0.5) ng/mL TSH (0.27-4.20) uIU/ mL Urine Color (Yellow) Urine Appearance (CLEAR) Urine pH (5-7) Ur Specific Gravit y (1.005-1.030) Urine Protein (Negative) Urine Glucose (UA) (Normal) Urine Ketones (Negative) Urine Blood (Negative) Urine Nitrate (Negative) Urine Bilirubin (Negative) Urine Urobilinogen (Negative) mg/dL Ur Leukocyte Aleisha ase (Negative) Urine RBC (0-2) /hpf Urine WBC (0-5) /hpf Ur Squamous Epith Cells (0-5) /hpf Ur Transition Epit h Cell /hpf Amorphous Sediment Urine Bacteria (NONE) /hpf Coarse Granular Ca sts /lpf Other Casts /lpf Urine Mucus /hpf Ur Random Sodium mmol/L Ur Random Potassiu m mmol/L Ur Random Chloride mmol/L Urine Creatinine (28-217) mg/dL Urine Opiates Scre en (Negative) ng/mL Ur Barbiturates Sc reen (Negative) ng/mL Ur Phencyclidine S crn (Negative) ng/mL Ur Amphetamines Sc reen (Negative) ng/mL U Benzodiazepines Scrn (Negative) ng/mL Urine Cocaine Scre en (Negative) ng/mL U Marijuana (THC) Screen (Negative) ng/mL SARS-CoV-2 Ag (Rap id) Negative (Negative) Discharge Plan Discharge Patient Disposition: Admitted As Inpatient Admit Provider: Julian Braden Condition: Stable Referrals: LENA AHUJA FNP [Referring] - 09/15/20 10:00 am Discharge Diet: Advance as tolerated and Regular Discharge Activity: Increase activity as tolerated Patient Instructions: Ciprofloxacin (By mouth), Mupirocin (On the skin), Acute Kidney Injury (DC), Urinary Tract Infection in Women (GEN) Discharge Date/Time: 09/04/20 14:58 Coding Level of Care Code ED Meter Attendant for Oleksandr Fwd Exam Comprehensive
[2020-09-04 09:38] LABS: Alanine Aminotransferase 48 U/L (0-33); Albumin Level 3.9 g/dL (3.5-5.2); Alkaline Phosphatase 99 IU/L (35-105); Aspartate Amino Transferase 40 U/L (0-32); Blood Urea Nitrogen 51 mg/dL (8-23); Calcium 8.5 mg/dL (8.5-10.5); Carbon Dioxide 20 mmol/L (22-29); Chloride 95 mmol/L (98-107); Globulin 2.4 g/dL (1.3-4.6); Glomerular Filtration Rate 23.8 mL/min (90-130); Glucose 126 mg/dL (65-115); Lipase 37 U/L (13-60); Osmolality Calculated 289 mOsm/kg (285-295); Sodium 132 mmol/L (136-145); Total Bilirubin 0.2 mg/dL (0.15-1.2); Total Protein 6.3 g/dL (6.6-8.7)
[2020-09-04 09:40] LABS: Troponin(5th) Baseline 8 ng/L (0-10)
[2020-09-04] MEDS: sodium chloride 0.9% 1,000 ML 999 ML IV ×2 (09:41→12:15)
[2020-09-04 09:49] LABS: Blood Urine 2+ (Negative); Glucose Urine UA Norm (Normal); Ketones Urine Negative (Negative); Nitrate Urine Negative (Negative); Protein Urine Neg (Negative); Urine Appearance SL Hazy (CLEAR); Urine Color Yellow (Yellow); pH Urine 5 (5-7)
[2020-09-04 09:50] LABS: Bilirubin Urine Neg (Negative); Leukocyte Esterase Urine 2+ (Negative); Urobilinogen Urine Norm (Negative); WBC Urine 55-80 /hpf (0-5)
[2020-09-04 09:51] LABS: Bacteria Urine 1+ /hpf; Squamous Epithelial Cell Urine 0-4 /hpf (0-5); Transitional Epi Cells Urine 0-4 /hpf
[2020-09-04 09:52] LABS: Add Urine Culture? Yes; Coarse Granular Casts Urine 0-4 /lpf; Mucus Urine TRACE /hpf; Other Casts Urine EPITHELIAL /lpf
[2020-09-04] MEDS: potassium chloride ER 10 mEq Tablet 20 MEQ PO (10:18)
[2020-09-04 10:38] LABS: Magnesium 2.9 mg/dL (1.7-2.3)
--- NOTE | 2020-09-04 10:52 | ECG_ITS ---
[facility] Test Date: 2020-09-04 Pat Name: Che Pruitt Department: Room: Gender: Female Senior Security Architect: : 1955 Requested By: Joni Dunbar Order Number: [id number] Sylvia MD: ALCON LEVINE Measurements Intervals [place] Rate: 93 P: 82 NM: 196 QRS: 24 QRSD: 85 T: 52 QT: 354 QTc: 442 Interpretive Statements SINUS RHYTHM WITH OCCASIONAL VENTRICULAR PREMATURE COMPLEXES Compared to ECG 09/04/2020 09:35:26 No significant changes Electronically Signed On 09-04-2020 19:36:13 PIPE STRESS ENGINEER by ALCON LEVINE [id number]
[2020-09-04 12:24] LABS: Troponin 5 2HR 7.19 ng/L (0-10)
[2020-09-04 12:29] LABS: Troponin 5 2HR Delta -0.81 ABS# (0-10)
[2020-09-04] MEDS: levofloxacin-dextrose 5 % 500 MG/100 ML PREMIX 100 MG IV (13:05)
[2020-09-04 13:16] LABS: SARS Covid-2 Antigen Negative (Negative)
--- NOTE | 2020-09-04 14:25 | PM.HP ---
Providers/Chief Complaint Admitting Physician: Julian Braden MD Chief Complaint: weak/throwing up/muscle aches History of Present Illness Che Pruitt is a 65 year old female with past medical history of hypertension, COPD not on oxygen, anxiety/depression who presents to the ER today after having 6 days of multiple episodes of nausea, vomiting, explosive diarrhea with flatulence. She lives at the [facility]. She states she was having some abdominal pain earlier in the week but not having any them anymore. She also states the urine output has been decreased for last 48 hours and she had not peed before coming to the ER since yesterday. Denies of having any headache, dizziness, palpitation, fever, flulike symptoms, recent exposure to COVID-19. She states she drinks well water which was recently treated. Also states only thing new is that she is raising around 68 chicken. Denies having any sick contacts or knowing anybody who has similar symptoms. Denies use of any raw meat. Blood work in the ER showed a white count of 9.6, hemoglobin of 13.1, platelet count of 332, sodium of 132, potassium of 3, BUN of 51, creatinine of 2.1, AST/ALT of 40/48, UA concerning for 50-80 WBCs, rapid Covid antigen negative with CT abdomen pelvis done in the ER showing multiple mesenteric lymph nodes. Review of Systems General: Reports: 10 or more systems reviewed and unremarkable except in HPI and below Const: Denies: fever(s), chills, body aches, change in appetite, change in weight, malaise, night sweats, diaphoresis, change in sleep pattern, daytime sleepiness or snoring Eyes: Denies: change in vision, blurry vision, photophobia, eye discomfort or eye discharge ENMT: Denies: throat pain, enlarged tonsils, hoarseness, mouth pain, oral sores, dry mouth, tinnitus, nasal congestion or post nasal drip Card: Denies: chest pain, palpitations, irregular heart rhythm, edema, swelling of feet/ankles, lightheadedness, syncope, pre-syncope, dyspnea on exertion, orthopnea, leg pain with exertion or acrocyanosis Resp: Denies: dyspnea, productive cough, non-productive cough, wheezing, stridor, pain on inspiration, change in phlegm color, hemoptysis or chest congestion GI: Denies: abdominal pain, nausea, vomiting, hematemesis, coffee ground emesis, dysphagia, heartburn, diarrhea, constipation, bloating, GI cramping, change in bowel habits, pain on defecation, hematochezia or melena : Denies: flank pain, dysuria, urinary frequency, urinary urgency, urinary hesitancy, nocturia or hematuria Musc: Denies: neck pain, back pain, extremity pain, joint pain, joint swelling, joint redness, joint stiffness or limited range of motion Neuro: Denies: headache(s), numbness in extremities, weakness in extremities, sensory changes, lack of coordination, difficulty walking, frequent falls, dizziness, vertigo, confusion, Slurred speech present, difficulty communicating thoughts or seizure-like activity Psych: Denies: anxiety, depression, mood swings, panic attacks, hopelessness or irritability Endo: Denies: polyuria, polydipsia, tired all the time, cold intolerance, excessive sweating, flushing or heat intolerance Fabrizio/Lymph: Denies: easy bruising or easy bleeding All/Imm: Denies: tongue swelling, facial swelling or acute wheezing Medications/Allergies Home Medications Medication Instructions Recorded Confirmed Last Taken Type albuterol sulfate [ProAir HFA] 2 inh INHALATION Q6H PRN #18 gm 05/07/20 09/04/20 Unknown Rx amlodipine 5 mg PO DAILY #14 tab 05/07/20 09/04/20 09/04/20 Rx ipratropium-albuterol 3 ml INHALATION QID PRN 05/07/20 09/04/20 09/04/20 06:00 History lisinopril 20 mg PO DAILY 05/07/20 09/04/20 09/04/20 History tiotropium bromide [Spiriva with 1 cap INHALATION DAILY #14 inh 05/07/20 09/04/20 09/03/20 Rx HandiHaler] magnesium 250 mg tablet 250 mg PO BID 08/29/20 09/04/20 Unknown History prenat.vits,[place],fiz-tatn-oozjr 1 tab PO DAILY 08/29/20 09/04/20 09/04/20 History cholecalciferol (vitamin D3) 2,000 unit PO BID 09/04/20 09/04/20 Unknown History [Vitamin D3] esomeprazole magnesium 20 mg PO BID 09/04/20 09/04/20 09/04/20 History fluticasone propionate [Flonase 2 spray INTRANASAL DAILY 09/04/20 09/04/20 Unknown History Allergy Relief] ibuprofen 400 mg PO PRN 09/04/20 09/04/20 09/04/20 06:00 History quetiapine [Seroquel] 300 mg PO BEDTIME 09/04/20 09/04/20 09/03/20 History trazodone 50 mg PO BEDTIME 09/04/20 09/04/20 09/03/20 History Allergies Allergy/AdvReac Type Severity Reaction Status Date / Time acetaminophen [From Lortab] Allergy ADR-Itching Verified 09/04/20 12:48 hydrocodone [From Lortab] Allergy ADR-Itching Verified 09/04/20 12:48 PFSH Acute PFSH: Medical History (Updated 09/04/20 @ 15:42 by Julian Braden MD) Anxiety Bipolar disorder COPD (chronic obstructive pulmonary disease) Hypertension Surgical History (Updated 09/04/20 @ 15:42 by Julian Braden MD) History of hysterectomy History of tympanoplasty Family History (Updated 09/04/20 @ 15:42 by Julian Braden MD) Other CAD (coronary artery disease) Hypertension Psychiatric illness Stroke Social History (Updated 09/04/20 @ 15:43 by Julian Braden MD) Smoking and tobacco status: former smoker Alcohol intake: never Substance/Drug Use: never Lives independently: Yes Household members: spouse Housing: Manufactured/Mobile home Current gender identity: Female Vitals/I&O/Wt Last Vital Signs Temp 97.9 F 09/04/20 09:02 Pulse 88 09/04/20 09:02 Resp 18 09/04/20 09:02 BP 97/62 09/04/20 09:02 Pulse Ox 94 09/04/20 09:32 Weight last 48 hrs Weight 83.915 kg Physical Exam Narrative: EXAM NARRATIVE: General: No acute distress, AO x3, dehydrated HEENT: PERRLA, pupils bilaterally equal and reactive Chest: Normal vesicular breath sounds, no added sounds, equal good air entry bilaterally CVS: S1-S2 regular, no murmurs, no tachycardia, no gallops, no rubs Abdomen: Soft, generalized tenderness all over the abdomen, no organomegaly, bowel sounds present Neuro: No focal deficits, no facial deformity, AO x3, power 5/5 in all limbs Data : 09/04/20 09:12 09/04/20 09:12 Micro: Microbiology 09/04/20 09:12 Blood Culture - Preliminary Blood SPECIMEN COLLECTED A&P Assessment and plan (1) Diarrhea: Status: Acute (2) GARDENIA (acute kidney injury): Status: Acute (3) Dehydration: Status: Acute (4) Hyponatremia: Status: Acute (5) Hypokalemia: Status: Acute (6) COPD (chronic obstructive pulmonary disease): Status: Acute (7) Hypertension: Status: Acute Additional A&P Information 64-year-old female with past medical history of hypertension, COPD admitted with multiple episodes of diarrhea for last 6 days found to be extremely dehydrated and in GARDENIA with multiple electrolyte abnormalities. Diarrhea: CT results appreciated. Cannot rule out infective cause. Check stool studies. Given Levaquin in the ER. We will stop Levaquin in view of GARDENIA. Start patient on Zosyn. Normal saline at 75 cc/h. Blood cultures sent, check lactate level, urine culture, procalcitonin, drug urine drug screen. Will de-escalate antibiotics as per the culture results. GI soft diet. GARDENIA: Most likely secondary dehydration along with use of lisinopril at home. Medical reconciliation done for nephrotoxic drugs. Check urine lites, urine creatinine. IV hydration as above. Monitor BMP daily. Hypertension: Goal blood pressure less than 140/90 mmHg with mean over 65. Blood pressure soft for now so we will hold off on any antihypertensives. Continue to monitor blood pressures. COPD: Not in exacerbation. DuoNebs every 6 hours. Oxygen supplementation keeping saturation over 90%. Electrolyte abnormality: We will replace potassium with 80 mEq oral. IV fluids for sodium. Recheck BMP in 12 hours. Check iron panel, TSH, HbA1c, lipid panel. Full code. Heparin 5000 every 12 for DVT prophylaxis. GI soft diet. Attestations Medical Necessity Statement*: Patient requires admission for evaluation and treatment for multiple episodes of diarrhea leading to acute kidney injury and multiple electrolyte abnormalities. Admission for more than 2 midnights. Time Spent in Patient Care: Greater than 35 minutes (>than 50% of time spent in counselling and/or direct pt care on unit). Coding Level of Care Code Acute Merchandise Flow Team Leader for Chg Fwd Diagnoses Diarrhea R19.7 GARDENIA (acute kidney injury) N17.9 Dehydration E86.0 Hyponatremia E87.1 Hypokalemia E87.6 COPD (chronic obstructive pulmonary disease) J44.9 Hypertension I10
--- NOTE | 2020-09-04 14:52 | ECG_ITS ---
[facility] Test Date: 2020-09-04 Pat Name: Che Pruitt Department: Room: 252 Gender: Female Movie Producer: : 1955 Requested By: Joni Dunbar Order Number: [id number] Reading MD: ALCON LEVINE Measurements Intervals [place] Rate: 88 P: 74 DE: 190 QRS: -11 QRSD: 86 T: 57 QT: 312 QTc: 379 Interpretive Statements SINUS RHYTHM NONSPECIFIC T-WAVE ABNORMALITY Compared to ECG 09/04/2020 12:53:13 T-wave abnormality now present Ventricular premature complex(es) no longer present Electronically Signed On 09-04-2020 19:36:02 PROFESSIONAL WRESTLER by ALCON LEVINE [id number]
[2020-09-04 14:57] LABS: Amphetamines Screen Urine Negative (Negative); Barbiturates Screen Urine Negative (Negative); Benzodiazepines Screen Urine Negative (Negative); Cocaine Screen Urine Negative (Negative); Opiate Screen Urine Negative (Negative); PCP Screen Urine Negative (Negative); THC Screen Urine Negative (Negative)
[2020-09-04 15:08] LABS: Procalcitonin 0.31 ng/mL (0-0.5); Thyroid Stimulating Hormone 0.75 uIU/mL (0.27-4.20)
[2020-09-04 15:19] LABS: Potassium, Radom Urine 42 mmol/L; Urine Creatinine 141 mg/dL (28-217)
[2020-09-04 15:19] LABS: Iron 38 ug/dL (37-145); Percent Saturation 19.7 % (20-50); Phosphorus 4.6 mg/dL (2.5-4.5); Total Iron Binding Capacity 192 mcg/dl; Unsaturated Iron Binding 154 ug/dL (112-347)
[2020-09-04] MEDS: ipratropium-albuterol 3 mL Neb INHALATION ×2 (15:25→21:08)
[2020-09-04 15:33] LABS: Urine Random Sodium 18 mmol/L
[2020-09-04 15:34] LABS: Urine Random Chloride < 10 mmol/L
[2020-09-04] MEDS: piperacillin-tazobactam 3.375 GM in sodium chloride 0.9% (plus) 50 ML IV (15:41)
[2020-09-04] MEDS: sodium chloride 0.9% 1,000 ML 75 ML IV (15:41)
[2020-09-04] MEDS: heparin 5,000 unit/mL INJ 1 mL 5000 UNIT SUBCUT (15:42)
[2020-09-04 16:03] LABS: Lactic Sepsis W/Reflex 0.5 mmol/L (0.5-2.2)
[2020-09-04] MEDS: potassium chloride ER 10 mEq Tablet 40 MEQ PO (17:17)
[2020-09-04] MEDS: budesonide 0.5 mg/2 mL Neb INHALATION (21:08)
[2020-09-04] MEDS: quetiapine 300 mg Tablet PO (22:23)
[2020-09-04] MEDS: trazodone 50 mg Tablet PO (22:23)
[2020-09-05] VITALS (12 sets, daily range): BP systolic 101–130; BP diastolic 66–78; PULSE 77–101; RESP 14–18; TEMP 36.6–37.2; O2SAT 92–96
[2020-09-05] MEDS: piperacillin-tazobactam 3.375 GM in sodium chloride 0.9% (plus) 50 ML IV ×3 (00:55→15:49)
[2020-09-05] MEDS: ipratropium-albuterol 3 mL Neb INHALATION ×4 (02:27→21:02)
[2020-09-05 05:44] LABS: Basophils % 0.5 %; Eosinophils % 0.5 %; Hematocrit 33.1 % (37.0-47.0); Hemoglobin 10.9 g/dL (11.5-15.3); Lymphocytes % 15.3 %; Mean Corpuscular HGB Conc 32.9 g/dL (30.0-36.0); Mean Corpuscular Hemoglobin 28.3 pg (28.0-34.0); Mean Platelet Volume 9.4 fL (7.4-10.4); Monocytes # 0.9 10^3/uL (0.2-0.9); Monocytes % 14.1 %; Neutrophils # 4.43 10^3/uL (1.8-7.7); Neutrophils % 68.7 %; Nucleated Red Blood Cells % 0 %; Platelet Count 295 10^3/cmm (130-400); Red Blood Count 3.85 10^6/uL (4.1-5.3); Red Cell Distribution Width 12.4 % (12.1-15.1); White Blood Count 6.5 10^3/uL (4.0-10.0)
[2020-09-05] MEDS: heparin 5,000 unit/mL INJ 1 mL 5000 UNIT SUBCUT ×2 (05:54→15:49)
[2020-09-05] MEDS: sodium chloride 0.9% 1,000 ML 75 ML IV ×2 (05:55→19:43)
[2020-09-05 06:29] LABS: Alanine Aminotransferase 33 U/L (0-33); Alkaline Phosphatase 81 IU/L (35-105); Anion Gap 11.5 (5-19); Aspartate Amino Transferase 23 U/L (0-32); Blood Urea Nitrogen 20 mg/dL (8-23); Calcium 8.1 mg/dL (8.5-10.5); Carbon Dioxide 21 mmol/L (22-29); Chloride 105 mmol/L (98-107); Globulin 2.4 g/dL (1.3-4.6); Glomerular Filtration Rate 72.4 mL/min (90-130); Glucose 110 mg/dL (65-115); Magnesium 2.2 mg/dL (1.7-2.3); Osmolality Calculated 281 mOsm/kg (285-295); Phosphorus 2.5 mg/dL (2.5-4.5); Potassium 3.5 mmol/L (3.5-5.1); Sodium 134 mmol/L (136-145); Total Bilirubin 0.2 mg/dL (0.15-1.2); Total Protein 5.4 g/dL (6.6-8.7)
[2020-09-05] MEDS: budesonide 0.5 mg/2 mL Neb INHALATION ×2 (08:01→21:01)
[2020-09-05] MEDS: pantoprazole DR 40 mg Tablet PO (09:54)
--- NOTE | 2020-09-05 10:05 | PC.CHAP ---
Pastoral Care Encounter/Spiritual Assessment Type of Contact [] Declined pool hall inspector visit [] Patient/Family/Request visit [] Outpatient visit [] Follow-up visit [] Physician referral [] Code/Alert [x] Routine visit [] Staff referral [] Actively dying [] Patient sleeping [] Family support [] [] Out of room [] Palliative care [] [] Receiving care in room [] Pre-surgical visit [] Trauma [] Long length of stay [] ICU visit [] Other: Relational/Emotional Strength [] Patient feels connected with others/family/visitors/staff [] Distress [] Loneliness/isolation [] Abandonment Spirituality of Patient [] Person of Coreen [] Attends Congregation of their Coreen [] Believes in Prayer [] Reads Bible or Anabaptism materials [] There are Spiritual issues to be addressed Chief Hospital Administrator Interventions [x] Prayer [x] Active listening [x] Non-anxious presence [x] Spiritual/emotional support [] Crisis/trauma care [] Spiritual counseling [] Bereavement support [] Provided bereavement packet [x] Provided Bible/devotional materials [] Provided toy/stuffed animal, coloring book to patient or family member [] Provided Communion [] Anointing/[place] [] Salvation [x] Completed spiritual assessment [] Other: Impact on Illness or Injury [] Angry [] Fearful [] Anxious [] Often cries [] Exhaustion [] Unable to work [] Unable to attend baptism [] Unable to walk/stand [] Unable to read [] Unable to drive [] Unable to eat/drink [] Unable to sleep [] Unable to be with family [] Patient intubated [] Other: Summary patient resting well ... Time spent with patient 10 min
--- NOTE | 2020-09-05 12:03 | PM.PN ---
Subjective Subjective: Interval history: Hemodynamically stable, afebrile, had 370 mL urine output overnight. Remains on IVF, and Zosyn. Resting quietly in bed, reports feeling better though still quite weak, has not had any bowel movements. So far has been tolerating oral intake. Medications: Reviewed: Yes Medication Review Details: Active Medications Generic Name Dose Route Start Last Admin Trade Name Freq PRN Reason Stop Dose Admin Al Hydrox/Mg [place] x/Simethicone 15 ml 09/04/20 14:48 Maalox PO Q6H PRN INDIGESTION Albuterol/Ipratrop ium 3 ml 09/04/20 15:00 09/05/20 08:00 Duoneb INHALATION 3 ml Q6H.RESPIRATORY S CH Administration Budesonide 0.5 mg 09/04/20 20:00 09/05/20 08:01 Pulmicort INHALATION 0.5 mg BID MARY ALICE Administration Fluticasone Propio arun 2 spray 09/05/20 09:00 09/05/20 09:55 Flonase INTRANASAL Not Given DAILY MARY ALICE Heparin Sodium (Be ef Lung) 5,000 unit 09/04/20 16:00 09/05/20 05:54 Heparin SUBCUT 5,000 unit Q12H MARY ALICE Administration Piperacillin Sod/T azobactam 50 mls @ 12.5 mls /hr 09/04/20 16:00 09/05/20 09:54 Sod 3.375 gm/ So dium Chloride IV 12.5 mls/hr Q8H MARY ALICE Administration Protocol Sodium Chloride 1,000 mls @ 75 ml s/hr 09/04/20 14:48 09/05/20 05:55 Sodium Chloride 0.9% IV 75 mls/hr .[id number] MARY ALICE Administration Ondansetron HCl 4 mg 09/04/20 14:48 Zofran IVP Q8H PRN vomiting, or N/V if npo Pantoprazole Sodiu m 40 mg 09/05/20 09:00 09/05/20 09:54 Protonix PO 40 mg DAILY MARY ALICE Administration Quetiapine Fumarat e 300 mg 09/04/20 21:00 09/04/20 22:23 Seroquel PO 300 mg BEDTIME MARY ALICE Administration Trazodone HCl 50 mg 09/04/20 21:00 09/04/20 22:23 Desyrel PO 50 mg BEDTIME MARY ALICE Administration acetaminophen [From Lortab] Allergy (Verified 09/04/20 12:48) ADR-Itching hydrocodone [From Lortab] Allergy (Verified 09/04/20 12:48) ADR-Itching Vitals/I&O/Wt Last Vital Signs Temp 98 F 09/05/20 07:46 Pulse 90 09/05/20 08:01 Resp 16 09/05/20 08:01 BP 101/66 09/05/20 07:46 Pulse Ox 93 09/05/20 08:01 09/04/20 09/05/20 09/05/20 22:59 06:59 14:59 Intake Total 550 / 550 1050 / 1600 Output Total 375 / 375 Balance 550 / 550 675 / 1225 Weight last 48 hrs Weight 84.277 kg Weight 83.915 kg Physical Exam Const: COMMON NORMALS: no acute distress, patient oriented x3 and alert GENERAL APPEARANCE: cooperative and comfortable ORIENTATION/CONSCIOUSNESS: Yes awake OTHER: -appears fatigued HENMT: COMMON NORMALS: normocephalic, atraumatic, hearing grossly normal bilaterally and moist oral mucous membranes HEAD & SCALP: normocephalic and atraumatic Eye: COMMON NORMALS: Equal, round and reactive pupils present, EOMs intact bilaterally and conjunctivae normal CONJUNCTIVA: Yes conjunctivae normal PUPIL: Yes Equal, round and reactive pupils present Neck/C-Spine: COMMON NORMALS: full ROM GENERAL: Yes normal visual inspection and Yes trachea midline Resp: COMMON NORMALS: normal respiratory effort, No retractions, No use of accessory muscles and clear to auscultation bilaterally EFFORT & INSPECTION: Yes able to speak in complete sentences, Yes symmetric chest movement and No tachypneic AUSCULTATION: clear to auscultation bilaterally OTHER: -on RA Cardio: COMMON NORMALS: regular rate, regular rhythm, S1 normal heart sound present, S2 normal heart sound present and No murmurs present (Cardio) RATE: regular rate RHYTHM: regular rhythm HEART SOUNDS: S1 normal heart sound present and S2 normal heart sound present GI: COMMON NORMALS: Normal to inspection, nondistended, normoactive bowel sounds present, Soft to palpation and non-tender PALPATION: Yes Soft to palpation Extremity: COMMON NORMALS: normal to inspection, full ROM and no clubbing, cyanosis or edema; negative for no pedal edema Neuro: COMMON NORMALS: patient oriented x3, moves all extremities, no focal motor deficits, no sensory deficits noted and gait normal SENSORIUM/ORIENTATION: Yes alert Psych: COMMON NORMALS: mental status grossly normal, Normal thought process present, cooperative, normal affect and speech normal SPEECH: Yes normal speech THOUGHT PROCESS: Normal thought process present Skin: COMMON NORMALS: no rashes or lesions noted, no jaundice, no petechiae and no mottling GENERAL SKIN EXAM: no rashes or lesions noted Data : 09/05/20 05:03 09/05/20 05:03 Micro: Microbiology 09/04/20 09:12 Blood Culture - Preliminary Blood NEGATIVE TO DATE 09/04/20 09:01 Urine Culture - Preliminary Urine,Clean Catch 09/04/20 09:01 Legionella Urinary Antigen - Final Urethra A&P Assessment and plan (1) Dehydration: -secondary to GI losses -on IVF hydration Status: Acute (2) Diarrhea: -stool studies pending receipt -on empiric antibiotics -on IVF hydration -noted multiple mesenteric lymph nodes on CT -afebrile, no leukocytosis -on GI soft diet -rapid COVID-19 negative, blood cx prelim negative, Legionella negative, nasal MRSA positive (add mupirocin ointment BID x 5-10 days) -lipase, LFTs, pro-calcitonin wnl Status: Acute Qualifiers: Diarrhea type: presumed infectious Qualified Code(s): R19.7 - Diarrhea, unspecified (3) UTI (urinary tract infection): -UA strongly indicative of infection -urine cx: contaminants -on abx Status: Acute Qualifiers: Hematuria presence: without hematuria Urinary tract infection type: acute cystitis Qualified Code(s): N30.00 - Acute cystitis without hematuria (4) COPD (chronic obstructive pulmonary disease): -no acute exacerbation -not oxygen dependent at baseline Status: Chronic Qualifiers: COPD type: unspecified COPD Qualified Code(s): J44.9 - Chronic obstructive pulmonary disease, unspecified (5) Hypertension: -VSS; continue to monitor vital signs -antihypertensives on hold due to concern for hypotension given dehydration Status: Chronic Qualifiers: Hypertension type: essential hypertension Qualified Code(s): I10 - Essential (primary) hypertension (6) GARDENIA (acute kidney injury): -renal function normalized following IVF hydration -avoid nephrotoxins, renally dose meds Status: Acute (7) Hyponatremia: -improving with hydration Status: Acute (8) Hypokalemia: -resolved Status: Resolved Additional A&P Information -GI ppx with PPI -DVT ppx with heparin -Dispo: home -Code status: FULL code Attestations Medical Necessity Statement*: Patient requires hospitalization for continued hydration, antibiotics. Time Spent in Patient Care: 16 - 35 minutes (>than 50% of time spent in counselling and/or direct pt care on unit). Coding Level of Care Code Acute Residential Youth Counselor for Chg Fwd Exam Comprehensive Diagnoses Dehydration E86.0 Diarrhea R19.7 Diarrhea type: presumed infectious UTI (urinary tract infection) N30.00 Hematuria presence: without hematuria Urinary tract infection type: acute cystitis COPD (chronic obstructive pulmonary disease) J44.9 COPD type: unspecified COPD Hypertension I10 Hypertension type: essential hypertension G[place]ENIA (acute kidney injury) N17.9 Hyponatremia E87.1 Hypokalemia E87.6
--- NOTE | 2020-09-05 16:53 | PC.RESP ---
Pulmonary Rehab information packet sent to patient.
[2020-09-05] MEDS: mupirocin oint 22 gm 1 APPLIC NASAL (19:47)
[2020-09-05] MEDS: trazodone 50 mg Tablet PO (21:59)
[2020-09-05] MEDS: quetiapine 300 mg Tablet PO (21:59)
[2020-09-06 00:37] VITALS: BP 107/62; PULSE 81; RESP 17; TEMP 37.2; O2SAT 92
[2020-09-06] MEDS: piperacillin-tazobactam 3.375 GM in sodium chloride 0.9% (plus) 50 ML IV ×2 (01:57→09:27)
[2020-09-06 04:06] VITALS: BP 105/61; PULSE 78; RESP 18; TEMP 37; O2SAT 91
[2020-09-06] MEDS: heparin 5,000 unit/mL INJ 1 mL 5000 UNIT SUBCUT (05:02)
[2020-09-06 06:00] VITALS: BMI 26.6
[2020-09-06] MEDS: sodium chloride 0.9% 1,000 ML 75 ML IV (06:26)
[2020-09-06 07:27] VITALS: BP 112/73; PULSE 84; RESP 18; TEMP 36.8; O2SAT 93
[2020-09-06 08:08] VITALS: PULSE 83; RESP 16; O2SAT 94
[2020-09-06] MEDS: ipratropium-albuterol 3 mL Neb INHALATION (08:12)
[2020-09-06] MEDS: budesonide 0.5 mg/2 mL Neb INHALATION (08:12)
[2020-09-06] MEDS: pantoprazole DR 40 mg Tablet PO (09:27)
[2020-09-06] MEDS: mupirocin oint 22 gm 1 APPLIC NASAL (09:27)
--- NOTE | 2020-09-06 11:05 | P.DS_ITS ---
Discharge Providers Date of Admission: 09/04/20 13:38 Date of Discharge: September 06, 2020 Attending Provider at Admission: Julian Braden MD Attending Provider at Discharge: Yazmin Leary MD Consults: None Diagnoses at Discharge Discharge Diagnosis (1) Dehydration: Status: Resolved Permanent problem details: -resolved following IVF hydration, hydrated adequately orally (2) Diarrhea: Status: Acute Permanent problem details: -stool studies pending receipt -on empiric antibiotics -on IVF hydration -noted multiple mesenteric lymph nodes on CT -afebrile, no leukocytosis -on GI soft diet; tolerating oral intake well -rapid COVID-19 negative, blood cx prelim negative, Legionella negative, nasal MRSA positive (added mupirocin ointment BID x 5-10 days) -lipase, LFTs, pro-calcitonin wnl Qualifiers: Diarrhea type: presumed infectious Qualified Code(s): R19.7 - Diarrhea, unspecified (3) UTI (urinary tract infection): Status: Acute Permanent problem details: -UA strongly indicative of infection -urine cx: contaminants -on abx Qualifiers: Hematuria presence: without hematuria Urinary tract infection type: acute cystitis Qualified Code(s): N30.00 - Acute cystitis without hematuria (4) COPD (chronic obstructive pulmonary disease): Status: Chronic Permanent problem details: -no acute exacerbation -not oxygen dependent at baseline Qualifiers: COPD type: unspecified COPD Qualified Code(s): J44.9 - Chronic obstructive pulmonary disease, unspecified (5) Hypertension: Status: Chronic Permanent problem details: -VSS; continue to monitor vital signs -can resume oral antihypertensives Qualifiers: Hypertension type: essential hypertension Qualified Code(s): I10 - Essential (primary) hypertension (6) G[place]ENIA (acute kidney injury): Status: Acute Permanent problem details: -renal function normalized following IVF hydration -avoid nephrotoxins, renally dose meds (7) Hyponatremia: Status: Acute Permanent problem details: -improved with IVF (8) Hypokalemia: Status: Resolved Reason for Visit Reason for Visit: weak/throwing up/muscle aches Hospital Course Hospital Course: Patient was admitted to the medical surgical floor and started on IV fluid hydration secondary to concern for clinical dehydration in light of GI losses from gastroenteritis. She was covered with empiric antibiotic treatment secondary to concern for possible infectious diarrhea. She has not had any bowel movements during her hospital stay so unable to send stool sample. She was noted to have acute renal impairment secondary to dehydration which has since resolved with IV fluid hydration. She is tolerating oral intake without difficulty and able to hydrate orally adequately. Electrolytes have improved as well with hydration. She has had good urine output consistently. She is hemodynamically stable and has consistently been afebrile and on room air. Suspicion for infectious process is still high so we will continue empiric antibiotic therapy to complete her treatment course. She is encouraged to continue to hydrate appropriately. Blood cultures have been negative. Urinalysis was indicative of infection, urine culture has grown contaminants. Choice of antibiotic has been driven by need to cover for both GI and source. She is encouraged to seek medical attention immediately should her symptoms worsen or recur. Discharge Summary: -Patient to follow-up with primary care provider within 1 week. Physical Exam Const: COMMON NORMALS: no acute distress, patient oriented x3 and alert GENERAL APPEARANCE: cooperative and comfortable ORIENTATION/CONSCIOUSNESS: Yes awake OTHER: -appears fatigued HENMT: COMMON NORMALS: normocephalic, atraumatic, hearing grossly normal bilaterally and moist oral mucous membranes HEAD & SCALP: normocephalic and atraumatic Eye: COMMON NORMALS: Equal, round and reactive pupils present, EOMs intact bilaterally and conjunctivae normal CONJUNCTIVA: Yes conjunctivae normal PUPIL: Yes Equal, round and reactive pupils present Neck/C-Spine: COMMON NORMALS: full ROM GENERAL: Yes normal visual inspection and Yes trachea midline Resp: COMMON NORMALS: normal respiratory effort, No retractions, No use of accessory muscles and clear to auscultation bilaterally EFFORT & INSPECTION: Yes able to speak in complete sentences, Yes symmetric chest movement and No tachypneic AUSCULTATION: clear to auscultation bilaterally OTHER: -on RA Cardio: COMMON NORMALS: regular rate, regular rhythm, S1 normal heart sound present, S2 normal heart sound present and No murmurs present (Cardio) RATE: regular rate RHYTHM: regular rhythm HEART SOUNDS: S1 normal heart sound present and S2 normal heart sound present GI: COMMON NORMALS: Normal to inspection, nondistended, normoactive bowel sounds present, Soft to palpation and non-tender PALPATION: Yes Soft to palpation Extremity: COMMON NORMALS: normal to inspection, full ROM and no clubbing, cyanosis or edema; negative for no pedal edema Neuro: COMMON NORMALS: patient oriented x3, moves all extremities, no focal motor deficits, no sensory deficits noted and gait normal SENSORIUM/ORIENTATION: Yes alert Psych: COMMON NORMALS: mental status grossly normal, Normal thought process present, cooperative, normal affect and speech normal SPEECH: Yes normal speech THOUGHT PROCESS: Normal thought process present Skin: COMMON NORMALS: no rashes or lesions noted, no jaundice, no petechiae and no mottling GENERAL SKIN EXAM: no rashes or lesions noted Discharge Data Data Completed and Pending: Completed Studies During Hospitalization Category Date Time Status CT abdomen pelvis wo con [id number] Urge nt Cat Scan 09/04/20 09:30 Completed XR chest 1V brittany ble [id number] Stat Exams 09/04/20 08:52 Completed Pending at discharge Category Date Time Status Blood Culture Sta t Lab 09/04/20 09:12 Results Clostridioides Di fficile PCR Routin e Lab 09/04/20 14:25 Ordered Enteric Bacterial Panel by PCR Rout ine Lab 09/04/20 10:38 Uncollected Enteric Bacterial Panel by PCR Rout ine Lab 09/04/20 14:25 Ordered Enteric Parasite Panel by PCR Routi ne Lab 09/04/20 14:25 Ordered Helicobacter Pylo ri AG Stool Stat Lab 09/04/20 10:38 Uncollected Immunochemical Fe [place] OCB Routine Lab 09/04/20 14:25 Ordered Lactoferrin Routi ne Lab 09/04/20 14:25 Ordered Vitals: Last Vital Signs Temp 98.2 F 09/06/20 07:27 Pulse 83 09/06/20 08:08 Resp 16 09/06/20 08:08 BP 112/73 09/06/20 07:27 Pulse Ox 94 09/06/20 08:08 Discharge Plan Discharge Patient Disposition: Home Condition: Stable Prescriptions: New ciprofloxacin HCl 500 mg Tablet 500 mg PO BID 10 Days Qty: 20 RF: 0 mupirocin 2 % Ointment 1 applic nasal BID 7 Days Qty: 30 RF: 0 Continued prenat.vits,[place],[id number]-cxoe-aokcd Tablet 1 tab PO DAILY RF: 0 magnesium 250 mg tablet 250 mg PO BID RF: 0 ibuprofen 200 mg Tablet 400 mg PO PRN RF: 0 Flonase Allergy Relief 50 mcg/actuation [place],Suspension 2 spray INTRANASAL DAILY RF: 0 Vitamin D3 50 mcg (2,000 unit) Capsule 2,000 unit PO BID RF: 0 Seroquel 300 mg tablet 300 mg PO BEDTIME RF: 0 trazodone 50 mg tablet 50 mg PO BEDTIME RF: 0 esomeprazole magnesium 20 mg capsule,delayed release(DR/EC) 20 mg PO BID RF: 0 ipratropium-albuterol 0.5 mg-3 mg(2.5 mg base)/3 mL Solution For Nebulization 3 ml INHALATION QID PRN (Reason: Shortness Of Breath) RF: 0 lisinopril 20 mg tablet 20 mg PO DAILY RF: 0 amlodipine 5 mg tablet 5 mg PO DAILY Qty: 14 RF: 0 albuterol sulfate [ProAir HFA] 90 mcg/actuation HFA aerosol inhaler 2 inh INHALATION Q6H PRN (Reason: shortness of breath or wheezing) Qty: 18 RF: 0 Spiriva with HandiHaler 18 mcg capsule, w/inhalation device 1 cap INHALATION DAILY Qty: 14 RF: 0 Discharge Orders: Discharge Order (Routine); Ordered 09/06/20 Ordered By: Yazmin Leary Referrals: LENA AHUJA FNP [Referring] - 09/15/20 10:00 am Discharge Diet: Advance as tolerated and Regular Discharge Activity: Increase activity as tolerated Patient Instructions: Ciprofloxacin (By mouth), Mupirocin (On the skin), Acute Kidney Injury (DC), Urinary Tract Infection in Women (GEN) Discharge Attestations Time Spent in Discharge Care*: greater than 30 min Specific Discharge Activities: Specific discharge activities: educating patient, discussing with case monitor/social workers/dc planners, documenting/other paperwork and evaluating patient/reviewing data Status at Discharge: Cognitive status at discharge: cognitively intact , Behavioral status at discharge: cooperative and independent in ADL's , Functional status at discharge: independent ambulation Overall status at discharge: patient is progressing back to baseline Quality Metrics Clinical Quality Measures During this hospital stay, did patient experience: None Coding Level of Care Code Acute Director [employer] for g Fwd Exam Comprehensive Diagnoses Dehydration E86.0 Diarrhea R19.7 Diarrhea type: presumed infectious UTI (urinary tract infection) N30.00 Hematuria presence: without hematuria Urinary tract infection type: acute cystitis COPD (chronic obstructive pulmonary disease) J44.9 COPD type: unspecified COPD Hypertension I10 Hypertension type: essential hypertension G[place]EN[place] (acute kidney injury) N17.9 Hyponatremia E87.1 Hypokalemia E87.6
[2020-09-06 11:29] VITALS: BP 114/69; PULSE 85; RESP 16; TEMP 36.8; O2SAT 92
[2020-09-06] MEDS: ciprofloxacin 500 mg Tablet PO (12:50)
--- NOTE | 2020-09-06 16:22 | PC.NURSE ---
Discharge instructions provided to patient; paperwork signed. All questions answered. Prescriptions already delivered to bedside. All belongings gathered and sent with patient. IV removed. Pt escorted via wheelchair to hospital entrance, and assisted into private vehicle where was waiting. No s/s distress; pt denied any concerns or needs at time of discharge.
== END 2020-09-06 16:15 | disposition home or self-care (01) | DRG 683 ==
LOC: ER 13:52 → MEDSURG 14:09
PROVIDERS: Emergency Medicine; Physician Assistant; Admitting Provider Student in an Organized Health Care Education/Training Program; Visit Provider Family Medicine
DX: N17.9 Acute kidney failure, unspecified (principal); E87.1 Hypo-osmolality and hyponatremia; N39.0 Urinary tract infection, site not specified; K52.9 Noninfective gastroenteritis and colitis, unspecified; E87.6 Hypokalemia; I10 Essential (primary) hypertension; E86.0 Dehydration; J44.9 Chronic obstructive pulmonary disease, unspecified; Z20.828 Contact with and (suspected) exposure to other viral communicable diseases; F41.8 Other specified anxiety disorders; Z87.891 Personal history of nicotine dependence
CPT/HCPCS: 12345; 36415; 71045; 74176; 80053; 80306; 81001; 82272; 82436; 82570; 83540; 83550; 83605; 83690; 83735; 84100; 84133; 84145; 84300; 84443; 84484; 85025; 87040; 87086; 87426; 87449; 87641; 93005; 94640; 94664; 96372; 99284; 99291; J1644; J1956; J2543; J7030; J7626

== ENCOUNTER → 2020-09-26 10:53 | Outpatient (BNVA) | payer OTHER, SELFPAY | PROVIDERS: Visit Provider Nurse Practitioner Psychiatric/Mental Health | DX: Z79.899 Other long term (current) drug therapy (principal) | CPT/HCPCS: 80053; 80061 ==

== ENCOUNTER → 2025-10-08 09:55 | Outpatient (BNVA) | payer MEDICARE, SELFPAY | PROVIDERS: Visit Provider Internal Medicine | DX: J44.89 Other specified chronic obstructive pulmonary disease (principal); J44.1 Chronic obstructive pulmonary disease with (acute) exacerbation; J96.10 Chronic respiratory failure, unspecified whether with hypoxia or hypercapnia; Z99.81 Dependence on supplemental oxygen; F41.9 Anxiety disorder, unspecified; Z87.891 Personal history of nicotine dependence; T78.40XA Allergy, unspecified, initial encounter; X58.XXXA Exposure to other specified factors, initial encounter | CPT/HCPCS: 82103; 85025; 86003; 99204; Q3014 ==

== ENCOUNTER 2025-11-03 08:45 | Outpatient (CLI) | payer MEDICARE, SELFPAY ==
[2025-11-03 09:03] VITALS: PULSE 76; RESP 18; O2SAT 98
== END 2025-11-03 08:46 | disposition home or self-care (01) ==
LOC: RT 08:51
PROVIDERS: PCP Nurse Practitioner Family; Visit Provider Internal Medicine
DX: J44.9 Chronic obstructive pulmonary disease, unspecified (principal); J98.8 Other specified respiratory disorders
CPT/HCPCS: J7613